=== PATIENT | female | born 1985 | race Caucasian/White ===

== ENCOUNTER 2024-08-25 12:35 | Outpatient (CLI) | payer OTHER | END 2024-08-25 12:36 | disposition home or self-care (01) | LOC: CSHMAMMO 12:35 | PROVIDERS: ATTEND Obstetrics & Gynecology | DX: R92.8 Other abnormal and inconclusive findings on diagnostic imaging of breast (principal); N63.13 Unspecified lump in the right breast, lower outer quadrant | CPT/HCPCS: G0279 ==